=== PATIENT | male | born 1980 | race Caucasian/White ===

== ENCOUNTER 2023-04-26 13:34 | Outpatient (OUT) | payer MEDICAID, SELFPAY ==
[2023-04-26 14:37] LABS: Cannabinoid Screen Urine NEGATIVE (NEGATIVE); Cocaine Screen Urine NEGATIVE (NEGATIVE); Phencyclidine Screen Urine NEGATIVE (NEGATIVE)
[2023-04-26 14:38] LABS: Amphetamine Screen Urine NEGATIVE (NEGATIVE); Barbiturates Screen Urine NEGATIVE (NEGATIVE); Benzodiazepines Screen Urine NEGATIVE (NEGATIVE); Buprenorphine Screen Urine NEGATIVE (NEGATIVE); Methadone Screen Urine NEGATIVE (NEGATIVE); Methamphetamines Screen Urine NEGATIVE (NEGATIVE); Opiate Screen Urine NEGATIVE (NEGATIVE); Oxycodone Screen Urine NEGATIVE (NEGATIVE); Tricyclic Antidepressant Urine NEGATIVE (NEGATIVE)
== END 2023-04-26 13:35 | disposition home or self-care (01) ==
PROVIDERS: Family Provider Nurse Practitioner Primary Care; PCP Family Medicine; Visit Provider Physician Assistant
DX: F11.20 Opioid dependence, uncomplicated (principal)
CPT/HCPCS: 80307

== ENCOUNTER 2023-05-06 08:03 | Outpatient (OUT) | payer MEDICAID, SELFPAY ==
[2023-05-06 08:20] LABS: Basophils Percent Auto 0.3 % (0.2-2.0); Hematocrit 46.2 % (42.0-54.0); Hemoglobin 15.4 g/dL (14.0-18.0); Immature Granulocytes Abs Auto 0.03 10^3/uL (0.00-0.03); Immature Granulocytes Pct Auto 0.4 % (0.0-0.5); Lymphocytes Absolute Auto 2.2 10^3/uL (1.2-3.8); Lymphocytes Percent Auto 33.1 % (20.5-60.0); Mean Corpuscular HGB Conc 33.3 g/dL (29.9-35.2); Mean Corpuscular Hemoglobin 28.5 pg (25.9-34.0); Mean Corpuscular Volume 85.6 fL (80.0-94.0); Mean Platelet Volume 13.5 fL (9.5-13.5); Monocytes Absolute Auto 0.3 10^3/uL (0.3-0.8); Monocytes Percent Auto 4.7 % (1.7-12.0); Neutrophils Absolute Auto 4.2 10^3/uL (1.4-6.5); Neutrophils Percent Auto 61.5 % (43.0-75.0); Platelet Count 165 10^3/uL (150-450); Red Cell Distribution Width 13.2 % (11.0-15.0); White Blood Count 6.8 10^3/uL (4.0-11.0)
[2023-05-06 09:24] LABS: Estimated Average Glucose 111 mg/dL; Glycohemoglobin A1C 5.5 % (4.5-6.2)
[2023-05-06 10:17] LABS: Alanine Aminotransferase 70 U/L (16-63); Albumin Level 3.8 g/dL (3.4-5.0); Alkaline Phosphatase 121 U/L (46-116); Anion Gap 11.5; Aspartate Amino Transferase 24 U/L (15-37); BUN Creatinine Ratio 26.6; Bilirubin Total 0.2 mg/dL (0.2-1.0); Calcium 9.2 mg/dL (8.5-10.1); Carbon Dioxide 24.6 mmol/L (21.0-32.0); Chloride 104 mmol/L (98-107); Chol HDL Ratio 4.6; Cholesterol 235 mg/dL (<=200); Estimated GFR (African America >60 (>=60); Estimated GFR (Non-African Ame >60 (>=60); Globulin 3.7 g/dL; Glucose 98 mg/dL (74-106); HDL Cholesterol 51 mg/dL (40-60); Potassium 4.1 mmol/L (3.5-5.1); Sodium 136 mmol/L (136-145); Total Protein 7.5 g/dL (6.4-8.2); Triglycerides 113 mg/dL (<=150); VLDL CHOLESTEROL 22.6 mg/dL
[2023-05-08 05:07] LABS: HCV Ab Non Reactive (Non Reactive); HIV Ab/p24 Ag Screen Non Reactive (Non Reactive)
== END 2023-05-06 08:04 | disposition home or self-care (01) ==
LOC: LAB 08:06
PROVIDERS: Family Provider Nurse Practitioner Primary Care; PCP Nurse Practitioner Primary Care; Visit Provider Nurse Practitioner Primary Care
DX: Z00.00 Encounter for general adult medical examination without abnormal findings (principal); Z11.59 Encounter for screening for other viral diseases; Z13.6 Encounter for screening for cardiovascular disorders; Z11.4 Encounter for screening for human immunodeficiency virus [HIV]
CPT/HCPCS: 36415; 80053; 80061; 83036; 85025; 86803; 87389

== ENCOUNTER 2023-05-14 08:50 | Outpatient (OUT) | payer MEDICAID, SELFPAY ==
--- NOTE | 2023-05-14 08:53 | US_ITS ---
The [address] [address] Patient Name: SUKHDEEP JONES MRN: [id number] date: 1980 Sex: M Assigned Patient Location: US Current Patient Location: Accession/Order Number: [id number] Exam Date: 05/14/2023 09:00 Report Date: 05/14/2023 16:56 At the request of: JIN FERGUSON Procedure: US thyroid EXAMINATION: US thyroid HISTORY: Hyperthyroidism E05.90 COMPARISON: No relevant comparison available. TECHNIQUE: Sonographic images of the thyroid gland were obtained. FINDINGS: The right thyroid lobe is normal in size and contour measuring 5.8 x 1.9 x 2.0 cm. 3 subcentimeter nodules the most suspicious: Right mid lobe. 1.0 x 0.6 x 0.8 cm. Solid, hyperechoic, tall, smooth margins, no calcifications, TR 4 The thyroid isthmus measures 3.2 mm, no focal nodule The left thyroid lobe is normal in size and contour measuring 4.8 x 1.4 x 2.1 cm. No focal nodules US/US thyroid IMPRESSION: 1 cm right thyroid TR 4 nodule TI-RADS: The [employer] TI-RADS committee's white paper recommendations for thyroid lesions classified as TR4 (moderately suspicious) are listed below: > 1.0 cm. Follow-up ultrasound in 1, 2, 3, and 5 years. > 1.5 cm. FNA. J. Am [employer]iol 2017;14:[id number]. Electronically authenticated by: DERRICK VÁSQUEZ Date: 05/14/2023 16:56
== END 2023-05-14 08:51 | disposition home or self-care (01) ==
LOC: US 08:50
PROVIDERS: Family Provider Nurse Practitioner Primary Care; PCP Nurse Practitioner Primary Care; Visit Provider Nurse Practitioner Primary Care
DX: E05.90 Thyrotoxicosis, unspecified without thyrotoxic crisis or storm (principal); E04.1 Nontoxic single thyroid nodule
CPT/HCPCS: 76536

== ENCOUNTER 2023-12-11 14:37 | Outpatient (OUT) | payer OTHER, SELFPAY ==
[2023-12-11 15:25] LABS: Free T3 3.79 pg/mL (2.18-3.98); Thyroid Stimulating Hormone 2.056 uIU/mL (0.358-3.740)
[2023-12-11 15:31] LABS: Free T4 0.92 ng/dL (0.76-1.46)
[2023-12-12 04:12] LABS: Thyroid Peroxidase (TPO) Ab <9 IU/mL (0-34)
[2023-12-12 18:07] LABS: Thyroglobulin Antibody <1.0 IU/mL (0.0-0.9)
[2023-12-17 03:07] LABS: Thyrotropin Receptor Ab, Serum <1.10 IU/L (0.00-1.75)
== END 2023-12-11 14:38 | disposition home or self-care (01) ==
LOC: LAB 14:38
PROVIDERS: Family Provider Nurse Practitioner Primary Care; PCP Nurse Practitioner Primary Care; Visit Provider Internal Medicine
DX: E04.2 Nontoxic multinodular goiter (principal); E05.90 Thyrotoxicosis, unspecified without thyrotoxic crisis or storm
CPT/HCPCS: 36415; 83520; 84439; 84443; 84481; 86376; 86800

== ENCOUNTER 2023-12-12 07:21 | Outpatient (OUT) | payer OTHER, SELFPAY ==
--- NOTE | 2023-12-12 07:25 | US_ITS ---
The [address] [address] Patient Name: SUKHDEEP JONES MRN: [id number] date: 1980 Sex: M Assigned Patient Location: US Current Patient Location: Accession/Order Number: [id number] Exam Date: 12/12/2023 07:26 Report Date: 12/13/2023 05:30 At the request of: GRETA GERONIMO Procedure: US thyroid EXAMINATION: US thyroid HISTORY: Nontoxic Multinodular Goiter COMPARISON: Ultrasound thyroid 05/14/2023 FINDINGS: RIGHT LOBE: Within lateral mid body is a 13 x 8 x 7 mm TR 4 nodule. Incidental small colloid cyst also seen. Lobe size: 5.8 x 2.2 x 1.7 cm LEFT LOBE: Normal size and echotexture. Lobe size: 4.8 x 1.4 x 1.8 cm ISTHMUS: Minimally thickened. Thickness: 4 mm US/US thyroid IMPRESSION: 1. Within the right lobe mid body is a 13 mm TR 4 nodule. Typically this would warrant a 1 year follow-up, however, given what appears to be a slight increase in size since 7 months ago, additional follow-up in 6 months is recommended to document stability or to suggest tissue sampling at that time. TR4 (moderately suspicious): If > 1.0 cm, follow-up ultrasound in 1, 2, 3, and 5 years. If > 1.5 cm, fine needle aspiration (FNA). Electronically authenticated by: ALESSANDRA ARMSTRONG Date: 12/13/2023 05:30
== END 2023-12-12 07:22 | disposition home or self-care (01) ==
LOC: US 07:21
PROVIDERS: Family Provider Nurse Practitioner Primary Care; Visit Provider Internal Medicine
DX: E04.2 Nontoxic multinodular goiter (principal); E05.90 Thyrotoxicosis, unspecified without thyrotoxic crisis or storm; R00.2 Palpitations
CPT/HCPCS: 76536

== ENCOUNTER 2024-12-18 10:45 | Outpatient (OUT) | payer OTHER, SELFPAY | END 2024-12-18 10:46 | disposition home or self-care (01) | LOC: PST 10:45 | PROVIDERS: Family Provider Nurse Practitioner Primary Care; Visit Provider Surgery | DX: Z01.818 Encounter for other preprocedural examination (principal); Z12.11 Encounter for screening for malignant neoplasm of colon ==

== ENCOUNTER 2024-12-30 06:28 | Day surgery (SDC) | payer OTHER, SELFPAY ==
--- NOTE | 2024-12-30 | OP_ITS ---
OPERATION DATE: 12/30/2024 PREOPERATIVE DIAGNOSIS: Colorectal screening. POSTOPERATIVE DIAGNOSIS: Normal colonoscopy to cecum. PROCEDURE: Colonoscopy to cecum. SURGEON: Dale Anguiano M.D. ANESTHESIA: Monitored anesthesia care. ESTIMATED BLOOD LOSS: Zero. INDICATIONS AND CONSENT: Patient is a 44-year-old male, presents for colorectal screening. Indications, risks, benefits, alternatives of proceeding with colonoscopy were explained extensively to the patient, including the risks of bleeding, colon perforation or anesthetic complications. All of his questions were answered. Informed consent was obtained. PROCEDURE: Patient brought to the operating room, placed in the left lateral decubitus position. Monitored anesthesia care was provided. Rectal exam was performed which showed no masses or blood. The scope was inserted into the anal canal. Under direct visualization was advanced. With the aid of abdominal compression, it was advanced to the cecum where cecal markings were clearly identified. There was noted to be a fair prep with some liquid and semi-solid stool throughout the colon that was partially irrigated clear. There were no mass lesions or polyps noted. No inflammatory changes or ulcerations. No significant diverticulosis. The scope was retroflexed in the anal canal. There was no significant hemorrhoidal disease. Scope was then withdrawn. Patient tolerated procedure well, was sent to recovery room in good condition. Follow up screening colonoscopy should be in 10 years. CC: JANKI Perez
--- OUTSIDE RECORDS SUMMARY | 2024-12-30 06:31 | XMS_ITS | CCD ---
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 By: #### 2 [id number] #### [facility] [address] [place] [address] Albumin/Globulin (S) [Mass conc ratio] 1.9 Normal 1.1-2.2 [facility] Comment on above: Performed By: #### 2 [id number] #### [facility] [address] [place] [address] ALP [Catalytic activity/Vol] 110 Int._Unit/L High 21-98 [facility] Comment on above: Performed By: #### 2 [id number] #### [facility] [address] [place] [address] ALT No additional P-5'-P [Catalytic activity/Vol] 34 Int._Unit/L Normal 6-46 [facility] Comment on above: Performed By: #### 2 [id number] #### [facility] [address] [place] [address] Anion gap [Moles/Vol] 13 mmol/L Normal 6-16 [facility] Comment on above: Performed By: #### 2 [id number] #### [facility] [address] [place] [address] AST [Catalytic activity/Vol] 24 Int._Unit/L Normal 5-43 [facility] Comment on above: Performed By: #### 2 [id number] #### [facility] [address] [place] [address] Bilirubin [Mass/Vol] 0.4 mg/dL Normal 0.0-1.1 [facility] Comment on above: Performed By: #### 2 [id number] #### [facility] [address] [place] [address] Calcium [Mass/Vol] 9.7 mg/dL Normal 8.9-11.1 [facility] Comment on above: Performed By: #### 2 [id number] #### [facility] [address] [place] [address] Chloride [Moles/Vol] 99 mmol/L Low 101-111 [facility] Comment on above: Performed By: #### 2 057003 #### [facility] [address] [place] [address] CO2 [Moles/Vol] 28 mmol/L Normal 21-31 [facility] Comment on above: Performed By: #### 2 [id number] #### [facility] [address] [place] [address] Creatinine [Mass/Vol] 0.8 mg/dL Normal 0.5-1.3 [facility] Comment on above: Performed By: #### 2 338202 #### [facility] [address] [place] [address] Globulin (S) [Mass/Vol] 2.5 g/dL Normal 1.4-4.0 [facility] Comment on above: Performed By: #### 2 540473 #### [facility] [address] [place] [address] Glucose [Mass/Vol] 81 mg/dL Normal 55-199 [facility] Comment on above: Performed By: #### 2 [id number] #### [facility] [address] [place] [address] Potassium [Moles/Vol] 3.6 mmol/L Normal 3.5-5.3 [facility] Comment on above: Performed By: #### 2 633829 #### [facility] [address] [place] [address] Protein [Mass/Vol] 7.2 g/dL Normal 6.0-7.8 [facility] Comment on above: Performed By: #### 2 [id number] #### [facility] [address] [place] [address] Sodium [Moles/Vol] 136 mmol/L Normal 135-145 [facility] Comment on above: Performed By: #### 2 [id number] #### [facility] [address] [place] [address] Urea nitrogen [Mass/Vol] 17 mg/dL Normal 5-21 [facility] Comment on above: Performed By: #### 2 [id number] #### [facility] [address] [place] [address] Urea nitrogen/Creatinine [Mass ratio] 21 No Units High 10-20 [facility] Comment on above: Performed By: #### 2 [id number] #### [facility] [address] [place] [address] Lipid Panelon 10-20-2024 Cholesterol [Mass/Vol] 238 mg/dL High 120-200 [facility] Comment on above: Performed By: #### 2 [id number] #### [facility] [address] [place] [address] Cholesterol in HDL [Mass/Vol] 45 mg/dL Invalid Interpretation Code [facility] Comment on above: Result Comment: '>= 60 LOW RISK' '<= 40 HIGH RISK' Performed By: #### 2 [id number] #### [facility] [address] [place] [address] Cholesterol in LDL [Mass/Vol] 160 mg/dL High <=129 [facility] Comment on above: Performed By: #### 2 021124 #### [facility] [address] [place] [address] Cholesterol in VLDL [Mass/Vol] 62 mg/dL High 7-40 [facility] Comment on above: Performed By: #### 2 [id number] #### [facility] [address] [place] [address] Triglyceride [Mass/Vol] 310 mg/dL High <=149 [facility] Comment on above: Performed By: #### 2 [id number] #### [facility] [address] [place] [address] PSA Screen, Totalon 10-21-19 25 Prostate specific Ag [Mass/Vol] 0.6 ng/mL Normal 0.1-3.5 [facility] Comment on above: Result Comment: The concentration of PSA determined by different manufacturers can vary due to differences in assay methods and reagent specificity. Values obtained from different assay methods cannot be used interchangeably. The methodology used for this result was chemiluminescence using [employer]'s Access [employer] PSA reagent. Performed By: #### 1 [id number] #### [facility] [address] [place] [address] eGFRon 10-20-2024 eGFR 111 mL/min/1.73 m2 Normal >=59 [facility] Comment on above: Performed By: #### 1 [id number] #### [facility] [address] [place] [address] Ambulatory Visit Summaryon 0 10-19-2024 Ambulatory Visit Summary Ambulatory Visit Summary SUKHDEEP JONES Mary Kay :1980 Visit Date:10/19/2024 Ambulatory Visit Instructions Your Diagnosis Physical exam Benign hypertension (high blood pressure) Urinary hesitancy Trigger finger Colon cancer screening Prostate cancer screening Your Care Team Attending Physician - Brock Lantigua MD Primary Care Physician - Brock Lantigua MD This Is Your Medications List Contact prescribing physician if questions or concerns hydrochlorothiazide-los jamia (hydrochlorothiazide-lo sartan 12.5 mg-100 mg oral tablet) tamsulosin (Flomax 0.4 mg Cap) Procedures Performed Arthroplasty of right shoulder, Laminectomy. Discharge Vitals Heart Rate (Peripheral) 82 Respiratory Rate 16 Blood Pressure 138/88 Height 70 in Height 178 cm Weight 233.249 lb Weight 105.8 kg BMI 33.39 What to do next Scheduled Follow-Up Appointments 2024 8:20 AM EDT With: JANKI Shoemaker APRN, Leeanna Marie Where: [facility] [address] [place] [address] 2024 3:30 PM EDT With: Grzegorz CASEY, Brock Reeves Where: [address] [address]- Medications What How Much When Why Instructions Unchanged hydrochlorothiazide-los jamia (hydrochlorothiazide-lo sartan 12.5 mg-100 mg oral tablet) 1 Tablets By Mouth Every day Contact prescribing physician if questions or concerns Unchanged tamsulosin (Flomax 0.4 mg Cap) 1 Capsules By Mouth Every day Urinary hesitancy Contact prescribing physician if questions or concerns Medications and Immunizations Administered Not Given influenza virus vaccine, inactivated, Patient Refuses Allergies No Known Medication Allergies Problems Ongoing - Any problem that you are currently receiving treatment for. Benign hypertension (high blood pressure) BMI 32.0-32.9,adult Obesity (BMI 30-39.9) Physical exam Trigger finger Urinary hesitancy Patient Survey You may receive a survey via text or e-mail asking about your office visit. Please share your experience with us by completing your survey. We appreciate your feedback and thank you for choosing us for your care. Normal [facility] Family Medicine Office/Clini c Noteon 10-19-2024 Family Medicine Office/Clinic Note Family Medicine Office/Clinic Note Chief Complaint The patient presents for routine follow-up for hypertension, colon cancer screening, and morning finger locking symptoms. HPI Staff 2wk follow up Patient is here for follow up on hypertension. Started on Losartan/HCTZ @ [facility]. How often are you checking your blood pressure? Daily What are your average readings? _ 133/80 Yearly BMP: _ Pt was started on Flomax due to urinary hesitancy. doing better Per last encounter will obtain PSA at today's encounter. Referral was sent to Urology. pt has appt set 10/29/24 History of Present Illness The patient is a 43-year-old male presenting with follow-up for hypertension management, routine colon cancer screening, and evaluation of trigger finger. He reports a history of fluctuating blood pressure readings, with significantly higher measurements noted in the clinical setting compared to his home monitoring. His daily caffeine intake routine remains unchanged, potentially impacting his blood pressure levels. For colon cancer screening, although lacking a familial predisposition, he acknowledges gastrointestinal symptoms, including constipation alternating with diarrhea, alongside occasional fresh blood noted in stool presumed to be hemorrhoidal. He has expressed interest in scheduling a colonoscopy for a comprehensive evaluation. Regarding the musculoskeletal symptom, the patient experiences a locking phenomenon of an unspecified finger in the morning, characteristic of trigger finger, with consideration for potential corticosteroid injection therapy pending further conservative measures with anti-inflammatory medication. - Advise on reducing caffeine intake to aid in hypertension management. - Recommend colonoscopy for colorectal cancer screening. - Education on benefits of fiber intake to manage gastrointestinal symptoms and prevent constipation. - Smoking cessation encouragement with options such as pharmacotherapy discussed. Review of Systems PHQ Score Initial Depression Screen Score: 0 SCORE Physical Exam Vitals & Measurements HR: 82(Peripheral) RR: 16 BP: 138/88 SpO2: 96% HT: 70 in HT: 178 cm WT: 105.8 kg WT: 233.249 lb BMI: 33.39 General: alert, no acute distress ENMT: oral mucosa moist Cardiovascular: Regular rate and rhythm, normal peripheral perfusion Respiratory: Lungs clear to auscultation, respirations non labored Extremities: no deformity, no trauma Neurological: oriented x 4, level of consciousness appropriate for age, CN II-XII intact, motor strength equal & normal bilaterally, speech normal Abdomen: Soft, Non-tender, Non-distended, + Bowel sounds Assessment/Plan 1. Physical exam (Z00.00: Encounter for general adult medical examination without abnormal findings) Anticipatory guidance given. Discussed diet and exercise. Discussed immunizations. Ordered: CBC w/ Auto Diff Comprehensive Metabolic Panel Est Preventative 18 to 39 years [address] Est Preventative 40 to 64 years [address] [facility] [place] Ambulatory Referral Lipid Panel PSA Screen, Total 2. Benign hypertension (high blood pressure) (I10: Essential (primary) hypertension) Home blood pressure monitoring, reducing caffeine, and re-evaluation of antihypertensive medication regime. Ordered: CBC w/ Auto Diff Comprehensive Metabolic Panel Est Preventative 18 to 39 years [address]47 Est Preventative 40 to 64 years [address] [facility] Internal Ambulatory Referral Lipid Panel PSA Screen, Total 3. Urinary hesitancy (R39.11: Hesitancy of micturition) Improved with meds. Following up with Urology. Ordered: CBC w/ Auto Diff Comprehensive Metabolic Panel Est Preventative 18 to 39 years [address]461 Est Preventative 40 to 64 years [address] [facility] Internal Ambulatory Referral Lipid Panel PSA Screen, Total 4. Trigger finger (M65.30: Trigger finger, unspecified finger) Injections if not improved. Ordered: CBC w/ Auto Diff Comprehensive Metabolic Panel Est Preventative 18 to 39 years 619[address] Est Preventative 40 to 64 years [address] [facility] Internal Ambulatory Referral Lipid Panel PSA Screen, Total 5. Colon cancer screening (Z12.11: Encounter for screening for malignant neoplasm of colon) Colonoscopy ordered. Ordered: CBC w/ Auto Diff Comprehensive Metabolic Panel Est Preventative 18 to 39 years [address]72 Est Preventative 40 to 64 years [address] [facility] Internal Ambulatory Referral Lipid Panel PSA Screen, Total 6. Prostate cancer screening (Z12.5: Encounter for screening for malignant neoplasm of prostate) PSA ordered Ordered: CBC w/ Auto Diff Comprehensive Metabolic Panel Est Preventative 18 to 39 years [address]40 Est Preventative 40 to 64 years [address] Lipid Panel PSA Screen, Total 43-year-old male with a history of essential hypertension presenting with follow-up for management, colon cancer screening, and trigger finger. The patient's blood pressure remains inconsistently controlled, likely impacted by consistent caffeine use. (more content not included)... Normal [facility] Comment on above: Result Comment: Elec tronically Signed By: Grzegorz CASEY, Brock Perez.ferdinand\Date and Time Signed: 10/19/24 16:55 EST Ambulatory Visit Summaryon 0 09-17-2024 Ambulatory Visit Summary Ambulatory Visit Summary SUKHDEEP JONES :1980 Visit Date:09/17/2024 Ambulatory Visit Instructions Your Diagnosis Benign hypertension (high blood pressure) Tobacco use Urinary hesitancy Your Care Team Attending Physician - Brock Lantigua MD Primary Care Physician - Brock Lantigua MD This Is Your Medications List hydrochlorothiazide-los jamia (hydrochlorothiazide-lo sartan 12.5 mg-100 mg oral tablet) [Image Removed: STOP]Stop taking these medications amlodipine (amLODIPine 5 mg Tab) hydrochlorothiazide (hydrochlorothiazide 12.5 mg Tab) losartan (losartan 100 mg Tab) Procedures Performed Arthroplasty of right shoulder, Laminectomy. Discharge Vitals Temperature (Tympanic) 36.7 ???C Heart Rate (Peripheral) 77 Respiratory Rate 18 Blood Pressure 134/82 Height 179 cm Height 70 in Weight 105 kg Weight 231.485 lb BMI 32.77 What to do next Scheduled Follow-Up Appointments Saturday 4:30 PM EST With: Brock Lantigua MD Where: [address] [address]- Medications What How Much When Instructions New hydrochlorothiazide-los jamia (hydrochlorothiazide-lo sartan 12.5 mg-100 mg oral tablet) 1 Tablets By Mouth Every day Refills: 1 Pickup at [facility]/pharmacy #[id number] Pharmacy Information [facility]/pharmacy #[id number]: [address], [place] [id number] [phone] What When Comments Stop Taking amlodipine (amLODIPine 5 mg Tab) 90 EA, 0 Refill(s), TAKE 1 TABLET BY MOUTH EVERY DAY FOR 90 DAYS Stop Taking hydrochlorothiazide (hydrochlorothiazide 12.5 mg Tab) 30 EA, 0 Refill(s), TAKE 1 TABLET BY MOUTH EVERY DAY IN THE MORNING FOR 30 DAYS Stop Taking losartan (losartan 100 mg Tab) 90 EA, 0 Refill(s), TAKE 1 TABLET BY MOUTH EVERY DAY FOR 90 DAYS Allergies No Known Medication Allergies Problems Ongoing - Any problem that you are currently receiving treatment for. Benign hypertension (high blood pressure) Urinary hesitancy Patient Survey You may receive a survey via text or e-mail asking about your office visit. Please share your experience with us by completing your survey. We appreciate your feedback and thank you for choosing us for your care. Normal [facility] Family Medicine Office/Clini c Noteon 01-30-2025 Family Medicine Office/Clinic Note Family Medicine Office/Clinic Note Chief Complaint Establish Care The patient presents for hypertension management and evaluation of urinary hesitancy. HPI Staff Pt is a new pt. Here today to establish care. Establish Care: History: Any previous diagnosis: HTN History of seeing any specialist: no When was your last doctors visit: 6m ago Last provider: Dr Loredo Any recent labs: no Health Maintenance UTD: Colonoscopy: no PSA: unsure Acute: Current issues/complaints: Prescription refills Has been having hesitancy with urination. History of Present Illness The patient is a 43-year-old male presenting with hypertension management and urinary hesitancy. He has been on antihypertensive medications for approximately six to eight months, initially managed by previous health services which have closed. The current medications include amlodipine, hydrochlorothiazide, and losartan. There's a consideration of optimizing medication regime to two medications from three. Recently, the patient ran out of amlodipine and has missed two doses. Blood pressure management remains ongoing, with a focus on control. Urinary hesitancy was first noticed around two to four years ago, during past opioid use, and has persisted despite cessation. He is currently maintained on 65 mg daily methadone for opioid dependency. The patient has not been constipated while on methadone; however, he experienced severe constipation during active opioid use. A recent emergency room visit included a CT scan which ruled out masses or tumors, with recommendations to follow up with a urology consult. The patient is not currently on suboxone and does not have ongoing constipation issues. - Discussion on optimizing blood pressure medication regimen - Consideration of PSA screening for prostate health during next lab work - Encouragement of follow-up with urology as per emergency room recommendation Review of Systems PHQ Score Initial Depression Screen Score: 0 SCORE Physical Exam Vitals & Measurements T: 36.7 ???C(Tympanic) HR: 77(Peripheral) RR: 18 BP: 134/82 SpO2: 98% HT: 70 in HT: 179 cm WT: 105 kg WT: 231.485 lb BMI: 32.77 General: alert, no acute distress ENMT: oral mucosa moist Cardiovascular: Regular rate and rhythm, normal peripheral perfusion Respiratory: Lungs clear to auscultation, respirations non labored Extremities: no deformity, no trauma Neurological: oriented x 4, level of consciousness appropriate for age, CN II-XII intact, motor strength equal & normal bilaterally, speech normal Abdomen: Soft, Non-tender, Non-distended, + Bowel sounds Assessment/Plan 1. Benign hypertension (high blood pressure) (I10: Essential (primary) hypertension) Continue monitoring blood pressure. Adjust medication regimen to potentially reduce polypharmacy. Consider combining hydrochlorothiazide and losartan to optimize treatments. Ensure labs align with the next wellness visit for comprehensive monitoring. Ordered: [facility] [place] Ambulatory Referral 2. Tobacco use (Z72.0: Tobacco use) Continue to observe and advise on cessation during future visits. Address as part of ongoing health assessments. Ordered: [facility] Internal Ambulatory Referral 3. Urinary hesitancy (R39.11: Hesitancy of micturition) Initiate trial of tamsulosin (Flomax) to alleviate symptoms of hesitancy. Plan to conduct a PSA test at the next lab work for further assessment of prostate health, with a possible referral to urology if symptoms persist or worsen. Ordered: [facility] Internal Ambulatory Referral Orders: hydrochlorothiazide-los jamia, 1 tab(s), Oral, Daily, 90 tab(s), Refill(s) 1, [facility]/pharmacy #[id number], 179, cm, 09/17/24 10:22:00 EST, Height/Length Dosing, 105, kg, 09/17/24 10:22:00 EST, Weight Dosing 43-year-old male with a history of essential hypertension and substance use presenting with hypertension management and urinary hesitancy. The patient's blood pressure is currently controlled on a combination of amlodipine, hydrochlorothiazide, and losartan. There are considerations to optimize the therapeutic regimen. Urinary hesitancy persists, potentially related to long-term effects of prior opioid use, now managed with methadone therapy. Previous imaging was negative for structural abnormalities. During this visit, we reviewed the patient's current antihypertensive regimen and discussed potential modifications to improve medication compliance and efficacy. The consideration to combine hydrochlorothiazide with losartan for better blood pressure management was explored. For urinary hesitancy, we discussed starting tamsulosin to manage symptoms and reviewed the implications of his past opioid use and current methadone therapy. The potential need for further evaluation via PSA screening and referral to urology was also discussed, pending response to initial management. I confirmed the patient's understanding and agreement with the proposed plans and advised on the continuation of follow-up and (more content not included)... Normal [facility] Comment on above: Result Comment: Elec tronically Signed By: Grzegorz CASEY, Brock Perez.br\Date and Time Signed: 09/17/24 10:[address] abdomen pelvis wo conon 0 12-31-2023 CT abdomen pelvis wo con [facility] [place] [address] [place] [address] CT Scan Report Signed Patient: Sukhdeep Jones MR#: [id number] 6 : 1980 Acct:[id number] Age/Sex: 43 / M ADM Date: 12/31/23 Loc: ER Room: Type: [facility] ER Attending Dr: Copies to: Cecil White PA-C Ordering Provider: Cecil White PA-C Date of Service: 12/31/23 CT/CT abdomen pelvis wo con: rule out stone CT Abdomen and Pelvis withoutcontrast TECHNIQUE: Axial imaging with 2-D reconstruction. . The CT exam was performed using one or more the following dose reduction techniques: Automated exposure control, adjustment of the MA and/or Kv according to patient size, or use of the iterative reconstruction technique. COMPARISON: None History: Difficulty urinating. Difficulty with bowel movement. LIMITATIONS: None LOWER THORAX Unremarkable LIVER: Hepatic steatosis. GALLBLADDER: No gallbladder abnormality identified. BILE DUCTS: No dilatation SPLEEN: Unremarkable PANCREAS: Unremarkable ADRENAL GLANDS: Unremarkable KIDNEYS:Unremarkable AORTA: No abdominal aortic aneurysm identified. RETROPERITONEUM: No significant retroperitoneal abnormalities identified. MESENTERY:Unremarkable SMALL BOWEL: The small bowel loops are nondistended. APPENDIX: The appendix is normal. COLON: Unremarkable URINARY BLADDER: Urinary bladder is unremarkable. REPRODUCTIVE SYSTEM: Reproductive structures are unremarkable. PNEUMOPERITONEUM: None PERITONEAL FLUID:None BONY STRUCTURES: L5-S1 spondylosis. ABDOMINAL WALL: Unremarkable CT/CT abdomen pelvis wo con IMPRESSION: No acute findings. Hepatic steatosis. Impression dictated by: Sonido Hargrove M.D.12/31/2023 7:56 PM Dictation Location: [place] [address] Transcribed By: [facility] 12/31/231955 Dictated By: Sonido Hargrove DO 12/31/23 1950 Signed By: 12/31/231955 Normal [facility] Complete Blood Count Auto Di ffon 12-31-2023 Basophils (Bld) [#/Vol] 0.0 10*3/uL Normal 0.0-0.2 [facility] Comment on above: Result Comment: PERF ORMED BY: [place] [address] PATHOLOGIST FOOD SERVICE AGENT SERA SINGLETON M.D. Performed By: #### C MP, CBC #### [place] [address] [place] Basophils/100 WBC (Bld) 0.1 % Normal . [facility] Comment on above: Performed By: #### C MP, CBC #### [place] [address] [place] Eosinophils (Bld) [#/Vol] 0.0 10*3/uL Normal 0.0-0.45 [facility] Comment on above: Performed By: #### C MP, CBC #### [address] Eosinophils/100 WBC (Bld) 0.0 % Normal . [facility] Comment on above: Performed By: #### C MP, CBC #### [address] Erythrocyte distribution width (RBC) [Ratio] 15.1 % High 12.0-14.8 [facility] Comment on above: Performed By: #### C MP, CBC #### [address] Hematocrit (Bld) [Volume fraction] 43.4 % Normal 38.8-50.0 [facility] Comment on above: Performed By: #### C MP, CBC #### [place] [address] [place] Hemoglobin (Bld) [Mass/Vol] 14.6 g/dL Normal 13.0-17.0 [facility] Comment on above: Performed By: #### C MP, CBC #### [address] Lymphocytes (Bld) [#/Vol] 1.5 10*3/uL Normal 1.00-4.8 [facility] Comment on above: Performed By: #### C MP, CBC #### [address] Lymphocytes/100 WBC (Bld) 13.2 % Normal . [facility] Comment on above: Performed By: #### C MP, CBC #### [address] MCH (RBC) [Entitic mass] 28.1 pg Normal 27.5-35.2 [facility] Comment on above: Performed By: #### C MP, CBC #### [address] MCV (RBC) [Entitic vol] 83.5 fL Normal 83.5-101 [facility] Comment on above: Performed By: #### C MP, CBC #### [address] Mean Corpuscular HGB Conc 33.7 g/dL Normal 32.5-35.6 [facility] Comment on above: Performed By: #### C MP, CBC #### [place] [address] [place] Monocytes (Bld) [#/Vol] 0.5 10*3/uL Normal 0.0-0.8 [facility] Comment on above: Performed By: #### C MP, CBC #### [address] Monocytes/100 WBC (Bld) 16.31 % Normal 0.00-20.00 [facility] Comment on above: Performed By: #### C MP, CBC #### [place] [address] [place] Monocytes/100 WBC (Bld) 4.8 % Normal . [facility] Comment on above: Performed By: #### C MP, CBC #### [address] Neutrophils (Bld) [#/Vol] 9.2 10*3/uL High 1.8-7.7 [facility] Comment on above: Performed By: #### C MP, CBC #### [address] Neutrophils/100 WBC (Bld) 81.9 % Normal . [facility] Comment on above: Performed By: #### C MP, CBC #### [address] NRBC% 0.1 /100{WBC} Normal 0-0.5 [facility] Comment on above: Performed By: #### C MP, CBC #### [address] Platelet mean volume (Bld) [Entitic vol] 11.5 fL High 6.6-10.1 [facility] Comment on above: Performed By: #### C MP, CBC #### [address] Platelets (Bld) [#/Vol] 164 10*3/uL Normal 150-450 [facility] Comment on above: Performed By: #### C MP, CBC #### [address] RBC (Bld) [#/Vol] 5.20 10*6/uL Normal 3.90-5.60 [facility] Comment on above: Performed By: #### C MP, CBC #### [address] WBC (Bld) [#/Vol] 11.2 10*3/uL High 4.1-10.5 [facility] Comment on above: Performed By: #### C MP, CBC #### [address] Comprehensive Metabolic Pane martín 12-31-2023 Albumin [Mass/Vol] 4.5 g/dL Normal 3.5-5.7 [facility] Comment on above: Performed By: #### C MP, CBC #### [address] Albumin/Globulin [Mass ratio] 1.5 {ratio} Normal [facility] Comment on above: Performed By: #### C MP, CBC #### [address] ALP [Catalytic activity/Vol] 110 U/L High 34-104 [facility] Comment on above: Performed By: #### C MP, CBC #### [address] ALT [Catalytic activity/Vol] 84 U/L High 7-52 [facility] Comment on above: Performed By: #### C MP, CBC #### [address] Anion gap [Moles/Vol] 9.1 mmol/L Normal 6.0-15.0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 Attending Provider Active Start: November 22, 2023 End: November 22, 2023 NON STAFF Primary Care Provider Active Start: November 22, 2023 End: November 22, 2023 Goals (unrecognized section and content) Goals may be documented in a n alternate section No data available for this section FOR RECORDS PERTAINING TO PATIENTS WHO ARE OR HAVE BEEN ENROLLED IN A CHEMICAL DEPENDENCY/SUBSTANCEABUSE PROGRAM, SOME INFORMATION MAY BE OMITTED. This clinical summary was aggregated from multiple sources. Caution should be exercised in using it in the provision of clinical care. This summary normalizes information from multiple sources, and as a consequence, information in this document may materially change the coding, format and clinical context of patient data. In addition, data may be omitted in some cases. CLINICAL DECISIONS SHOULD BE BASED ON THE PRIMARY CLINICAL RECORDS. [facility]. provides no warranty or guarantee of the accuracy or completeness of information in this document.
[2024-12-30 06:35] VITALS: BP 159/95; PULSE 90; TEMP 36.1; O2SAT 96; BMI 32.6
[2024-12-30 07:00] VITALS: BMI 32.6
[2024-12-30] MEDS: 0.9 % SODIUM CHLORIDE 500 ML 50 ML IV (07:11)
[2024-12-30 07:40] VITALS: BP 129/81; PULSE 72; O2SAT 94
[2024-12-30 07:57] VITALS: BP 117/73; PULSE 74; O2SAT 98
== END 2024-12-30 08:10 | disposition home or self-care (01) ==
PROVIDERS: Family Provider Nurse Practitioner Primary Care; Visit Provider Surgery
PROC: (CPT 00812; principal; 2024-12-30 07:30)
DX: Z12.11 Encounter for screening for malignant neoplasm of colon (principal); I10 Essential (primary) hypertension; E78.5 Hyperlipidemia, unspecified; F17.210 Nicotine dependence, cigarettes, uncomplicated; G47.33 Obstructive sleep apnea (adult) (pediatric); R06.09 Other forms of dyspnea; E04.9 Nontoxic goiter, unspecified
CPT/HCPCS: 00812; 45378; J2371; J2704